=== PATIENT | male | born 1950 | race Hispanic/Latino ===

== ENCOUNTER 2017-06-07 06:58 | Day surgery (SDC) | payer OTHER, MEDICARE ==
[~2017-06-07] VITALS: Ht 172.7 cm; Wt 94.0 kg
[~2017-06-07 06:58] MED LIST: AMLO5TAB2 PO; ATOR10TA PO; LOSA100T29 PO; METF500T6 PO; MONT10TA21 PO; NITR0.4T50 SL; SODIUM CHLORIDE 0.9% 1000ML 1,000 ML IV ONE; TAMS-1 PO
[2017-06-07 07:39] VITALS: BP 163/72
[2017-06-07 07:45] VITALS: BP 90/38
[2017-06-07] MEDS ORDERED: PROPOFOL 10 MG/ML 20ML VIAL IV ONE (09:13)
== END 2017-06-07 09:54 | disposition home or self-care (01) ==
LOC: ENDO 06:58 → DAH 06:58 → ENDO 09:54
PROVIDERS: ATTEND Internal Medicine
DX: Z12.11 Encounter for screening for malignant neoplasm of colon (principal); K29.50 Unspecified chronic gastritis without bleeding; K63.5 Polyp of colon; K62.1 Rectal polyp; K51.80 Other ulcerative colitis without complications; K57.30 Diverticulosis of large intestine without perforation or abscess without bleeding; B96.81 Helicobacter pylori [H. pylori] as the cause of diseases classified elsewhere; K64.8 Other hemorrhoids; I10 Essential (primary) hypertension; J44.9 Chronic obstructive pulmonary disease, unspecified; I25.10 Atherosclerotic heart disease of native coronary artery without angina pectoris; E03.9 Hypothyroidism, unspecified; Z98.890 Other specified postprocedural states; Z90.49 Acquired absence of other specified parts of digestive tract; Z79.899 Other long term (current) drug therapy; Z68.33 Body mass index [BMI] 33.0-33.9, adult; E66.9 Obesity, unspecified; I45.19 Other right bundle-branch block
CPT/HCPCS: 43239; 45380; 82948 ×2; 88305; 88312; 93005; A4606; J2704; J7030

== ENCOUNTER 2024-04-24 05:39 | Day surgery (SDC) | payer OTHER, MEDICARE ==
[~2024-04-24] VITALS: Ht 170.2 cm; Wt 94.3 kg
[2024-04-24] VITALS (11 sets, daily range): BP systolic 126–189; BP diastolic 54–92; PULSE 63–77; RESP 14–21; TEMP 97.1–98.4
[~2024-04-24 05:39] MED LIST changes: -AMLO5TAB2 PO; +CARV6.25 PO; -LOSA100T29 PO; +LOSA100T59 PO; +METF-444 PO; -METF500T6 PO; -MONT10TA21 PO; +OMEP40CA21 PO; -SODIUM CHLORIDE 0.9% 1000ML 1,000 ML IV ONE
[2024-04-24] MEDS: 0.9%NACL 1000ML 1,000 ML IV ONE (06:24)
[2024-04-24] MEDS ORDERED: proPOFol 10 MG/ML 20ML VIAL IV ONE (07:09)
--- NOTE | 2024-04-24 08:00 | NUR ---
consult: viry alicea rn to notify dr. matthews of patient refusing to have colonoscopy repeated. pt agitated.
== END 2024-04-24 08:20 | disposition home or self-care (01) ==
LOC: DAH 05:39 → ENDO 05:39
PROVIDERS: ATTEND Internal Medicine Gastroenterology
DX: D50.9 Iron deficiency anemia, unspecified (principal); K55.20 Angiodysplasia of colon without hemorrhage; R19.5 Other fecal abnormalities; K21.9 Gastro-esophageal reflux disease without esophagitis; E03.9 Hypothyroidism, unspecified; Z90.49 Acquired absence of other specified parts of digestive tract; K57.30 Diverticulosis of large intestine without perforation or abscess without bleeding; K59.00 Constipation, unspecified; K31.A19 Gastric intestinal metaplasia without dysplasia, unspecified site; Z86.0100 Personal history of colon polyps, unspecified; I10 Essential (primary) hypertension; J44.9 Chronic obstructive pulmonary disease, unspecified; I25.10 Atherosclerotic heart disease of native coronary artery without angina pectoris; Z88.0 Allergy status to penicillin; Z79.84 Long term (current) use of oral hypoglycemic drugs; Z79.82 Long term (current) use of aspirin; Z79.899 Other long term (current) drug therapy; Z53.8 Procedure and treatment not carried out for other reasons
CPT/HCPCS: 45378; 82948 ×2; J7030 ×2; J2704; A4615; A4215; A4223; A4222; A4221; A4663; A4606; J3490

== ENCOUNTER 2024-06-20 05:45 | Day surgery (SDC) | payer OTHER, MEDICARE ==
[~2024-06-20] VITALS: Ht 170.2 cm; Wt 86.2 kg
[2024-06-20] VITALS (9 sets, daily range): BP systolic 125–179; BP diastolic 54–79; PULSE 61–69; RESP 15–17; TEMP 97.3–97.7
[~2024-06-20 05:45] MED LIST changes: -TAMS-1 PO; +TAMS-55 PO
[2024-06-20] MEDS ORDERED: proPOFol 10 MG/ML 20ML VIAL IV ONE (07:10)
[2024-06-20] MEDS ORDERED: LIDOCAINE HCL 1% 20 ML VIAL ONE (07:10)
[2024-06-20] MEDS: 0.9%NACL 1000ML 1,000 ML IV ONE (11:28)
[2024-06-20] MEDS ORDERED: SEMA2PEN SQ (11:33)
[2024-06-20] MEDS ORDERED: ESCI-8 PO (11:33)
[2024-06-20] MEDS ORDERED: ALBU18HF7 IH (11:33)
[2024-06-20] MEDS ORDERED: DOCU100T9 PO (11:39)
[2024-06-20] MEDS ORDERED: CHOL100046 PO (11:39)
[2024-06-20] MEDS ORDERED: DUTA0.5C37 PO (11:39)
[2024-06-20] MEDS ORDERED: METF-444 PO (11:39)
[2024-06-20] MEDS ORDERED: HYDR25TA PO (11:39)
[2024-06-20] MEDS ORDERED: BENZ200C53 PO (11:39)
[2024-06-20] MEDS ORDERED: TRAMADOL PO (11:39)
[2024-06-20] MEDS ORDERED: ASPI-1005 PO (11:39)
== END 2024-06-20 08:30 | disposition home or self-care (01) ==
LOC: ENDO 05:45 → DAH 05:45 → ENDO 08:30
PROVIDERS: ATTEND Internal Medicine Gastroenterology
DX: D50.9 Iron deficiency anemia, unspecified (principal); K62.1 Rectal polyp; K57.30 Diverticulosis of large intestine without perforation or abscess without bleeding; K64.0 First degree hemorrhoids; K55.20 Angiodysplasia of colon without hemorrhage; R19.5 Other fecal abnormalities; I25.10 Atherosclerotic heart disease of native coronary artery without angina pectoris; J44.9 Chronic obstructive pulmonary disease, unspecified; K21.9 Gastro-esophageal reflux disease without esophagitis; E11.9 Type 2 diabetes mellitus without complications; E03.9 Hypothyroidism, unspecified; Z86.0100 Personal history of colon polyps, unspecified; F32.A Depression, unspecified; K59.00 Constipation, unspecified; K31.A19 Gastric intestinal metaplasia without dysplasia, unspecified site; M19.90 Unspecified osteoarthritis, unspecified site; Z90.49 Acquired absence of other specified parts of digestive tract; Z88.0 Allergy status to penicillin; Z79.84 Long term (current) use of oral hypoglycemic drugs; Z79.899 Other long term (current) drug therapy
CPT/HCPCS: 45380; 82948; J7030; J2704; A4620; A4215; J3490